=== PATIENT | female | born 1980 | race Caucasian/White ===

== ENCOUNTER 2021-10-06 18:29 | Outpatient (REF) | payer MEDICAID, SELFPAY ==
[2021-10-06 18:55] LABS: TSH (W/Ref FT4) 1.92 uIU/mL (0.36-3.74)
== END 2021-10-06 18:30 | disposition home or self-care (01) ==
LOC: NCHCN 18:29
PROVIDERS: Visit Provider Nurse Practitioner Family
DX: R00.2 Palpitations (principal)
CPT/HCPCS: 84443

== ENCOUNTER 2022-03-10 07:59 | Outpatient (CLI) | payer MEDICAID, SELFPAY ==
--- NOTE | 2022-03-10 07:45 | RT.EKG_ITS ---
APPROVED REPORT Exam: Resting ECG Reason for Exam: palpitations Patient Location: O HR:74 bpm ECG Measurements Heart Rate 74 AXIS MI 163 P 37 QRSd 86 QRS 22 QT 382 T 36 QTc 424 Conclusion Sinus rhythm...normal P axis, V-rate 50- 99 Low voltage, precordial leads...precordial leads <1.0mV Otherwise normal
== END 2022-03-10 08:00 | disposition home or self-care (01) ==
LOC: DI.CARD 08:00
PROVIDERS: PCP Nurse Practitioner Family; Visit Provider Internal Medicine Cardiovascular Disease
DX: R00.2 Palpitations (principal)
CPT/HCPCS: 93010

== ENCOUNTER 2022-04-04 10:32 | Outpatient (REF) | payer MEDICAID, SELFPAY ==
[2022-04-04 15:53] LABS: ALT 17 U/L (14-59); AST 20 U/L (15-37); Albumin 4.2 g/dL (3.4-5.0); Alkaline Phosphatase 45 U/L (46-116); Anion Gap 5.1 mmol/L (3-11); BUN 12 mg/dL (7-18); Bilirubin, Total 0.6 mg/dL (0.2-1.0); CO2 29.9 mmol/L (21.0-32.0); Calcium 8.9 mg/dL (8.5-10.1); Calculated LDL 76 mg/dL (<100); Chloride 101 mmol/L (98-107); Cholesterol 164 mg/dL (<200); Glucose 96 mg/dL (74-106); HDL Cholesterol 73 mg/dL (40-60); Sodium 136 mmol/L (136-145); Total Protein 7.8 g/dL (6.4-8.2); Triglyceride 76 mg/dL (<150)
== END 2022-04-04 10:33 | disposition home or self-care (01) ==
LOC: NCHCN 10:32
PROVIDERS: PCP Nurse Practitioner Family; Visit Provider Nurse Practitioner Family
DX: R00.2 Palpitations (principal); Z13.220 Encounter for screening for lipoid disorders; R07.89 Other chest pain
CPT/HCPCS: 80053; 80061

== ENCOUNTER → 2022-04-04 11:03 | Outpatient (CLI) | payer MEDICAID, SELFPAY ==
--- NOTE | 2022-04-04 | DI.US_ITS ---
Exam(s) US LOWER EXTREMITY VENOUS RT EXAM: US LOWER EXTREMITY VENOUS RT CLINICAL HISTORY: PHLEBITIS AND THROMBOPHLEBITIS OF OTHER SITE, I80.8 TECHNIQUE: Grayscale, color, and doppler imaging of the deep venous system of the right lower extrem ity was performed. COMPARISON: No exams were available for comparison FINDINGS: There is no evidence of intraluminal thrombus and there is normal compression and augmentation demons trated within the common femoral vein, femoral vein, and popliteal vein. In the ipsilateral calf the interrogated veins also exhibit normal compression/ augmentation properti es. The ipsilateral saphenofemoral junction is patent. There are dilated varicose veins in the area of bruising medial aspect of the knee area but veins wer e compressible with no evidence of intraluminal thrombus therein. In addition, there is no abnormal subcutaneous fluid collection. IMPRESSION: 1. No evidence of DVT in the right lower extremity. 2. Medially located varicose veins which do not exhibit thrombophlebitis. DATA REPOSITORY:
== END ==
PROVIDERS: PCP Nurse Practitioner Family; Visit Provider Nurse Practitioner Family
DX: I83.91 Asymptomatic varicose veins of right lower extremity (principal)
CPT/HCPCS: 93971

== ENCOUNTER 2023-02-08 10:12 | Outpatient (CLI) | payer MEDICAID, SELFPAY ==
--- NOTE | 2023-02-08 10:11 | DI.RAD_ITS ---
Exam(s) XR KNEE RT 3V AP,LAT,CANDACE EXAM: XR KNEE RT 3V AP,LAT,CANDACE CLINICAL HISTORY: ACUTE RT KNEE PAIN M25.561. TECHNIQUE: 2D digital imaging was performed. COMPARISON: No exams were available for comparison FINDINGS: 3 views No evidence of acute fracture nor obvious joint effusion. No joint space narrowing. No osteophytes. No lytic osseous lesions. Bone density appears normal. IMPRESSION: No significant osseous findings in the knee. DATA REPOSITORY: RADIATION DOSE DELIVERED:
== END 2023-02-08 10:32 ==
LOC: DI 10:18
PROVIDERS: PCP Nurse Practitioner Family; Visit Provider Nurse Practitioner Family
DX: M25.561 Pain in right knee (principal)
CPT/HCPCS: 73562

== ENCOUNTER 2023-10-16 11:10 | Outpatient (CLI) | payer MEDICAID, SELFPAY | END 2023-10-16 11:11 | disposition home or self-care (01) | PROVIDERS: PCP Nurse Practitioner Family; Visit Provider Nurse Practitioner Family | DX: R00.2 Palpitations (principal) | CPT/HCPCS: 93246 ==

== ENCOUNTER 2023-10-22 14:57 | Outpatient (REF) | payer MEDICAID, SELFPAY ==
[2023-10-22 16:02] LABS: Abs Immature Grans 0.01 10^3/uL (0.0-0.06); Absolute Basophil Count 0.04 10^3/uL (0.0-0.2); Absolute Eosinophil Count 0.06 10^3/uL (0.0-0.7); Absolute Lymphocyte Count 2.26 10^3/uL (1.2-3.4); Absolute Monocyte Count 0.46 10^3/uL (0.1-0.8); Absolute Neutrophil Count 2.35 10^3/uL (1.2-6.7); Basophils % 0.8; Eosinophils % 1.2; HCT 42.2 % (36.0-46.0); HGB 13.8 g/dL (11.2-15.7); Immature Grans % 0.2; Lymphocytes % 43.6; MCH 30.6 pg (27.0-33.0); MCHC 32.7 % (32.0-36.0); MCV 94 fL (80-95); MPV 11.8 fL (8.0-11.0); Monocytes % 8.9; Neutrophils % 45.3; Platelet Count 184 10^3/uL (130-400); RBC 4.51 10^6/uL (3.93-5.22); RDW 11.9 % (11.7-14.6); RDW-SD 41.1 fL; WBC 5.18 10^3/uL (4.4-10.8)
[2023-10-22 16:25] LABS: ALT 17 U/L (14-59); AST 16 U/L (15-37); Albumin 4.3 g/dL (3.4-5.0); Alkaline Phosphatase 36 U/L (46-116); Anion Gap 11.4 mmol/L (3-11); BUN 12 mg/dL (7-18); Bilirubin, Total 0.6 mg/dL (0.2-1.0); CO2 23.6 mmol/L (21.0-32.0); CREATININE 0.9 mg/dL (0.55-1.02); Calcium 9.1 mg/dL (8.5-10.1); Calculated LDL 54 mg/dL (<100); Chloride 103 mmol/L (98-107); Cholesterol 132 mg/dL (<200); Estimated GFR 82.37 (mL/min/1.73m2); Glucose 102 mg/dL (74-106); HDL Cholesterol 67 mg/dL (40-60); Potassium 3.8 mmol/L (3.5-5.1); Sodium 138 mmol/L (136-145); TSH 4.34 uIU/mL (0.36-3.74); Total Protein 7.5 g/dL (6.4-8.2); Triglyceride 56 mg/dL (<150)
[2023-10-22 17:24] LABS: FREE T4 0.98 ng/dL (0.76-1.46)
[2023-10-23 15:17] LABS: ANA Interpretation Negative (Negative)
== END 2023-10-22 14:58 | disposition home or self-care (01) ==
LOC: NCHCN 14:57
PROVIDERS: PCP Nurse Practitioner Family; Visit Provider Nurse Practitioner Family
DX: L65.9 Nonscarring hair loss, unspecified (principal); R00.2 Palpitations; N94.89 Other specified conditions associated with female genital organs and menstrual cycle; Z13.220 Encounter for screening for lipoid disorders
CPT/HCPCS: 80053; 80061; 86141; 84439; 84443; 85025; 86038

== ENCOUNTER → 2023-11-02 01:03 | Outpatient (CLI) | payer MEDICAID, SELFPAY ==
--- NOTE | 2023-11-02 08:30 | DI.MAMMO_ITS ---
Exam(s) MAMMO SCREENING EXAM: MAMMO SCREENING CLINICAL HISTORY: SCREENING, Z12.39 TECHNIQUE: Bilateral full field digital CC and MLO mammographic images were obtained with 3D tomosyn thesis and utilizing computer aided detection (CAD). COMPARISON: This is a baseline examination. FINDINGS: Masses/Architectural Distortion: None seen. Microcalcifications: No suspicious pleomorphic-type are seen. Skin Thickening/Nipple Retraction: None. IMPRESSION: 1. No significant interval change with no specific features of malignancy noted. 2. Unless there is more urgent need, screening mammography is recommended, as per [employer] [place] [employer] guidelines. BI-RADS Category 1 - Negative Breast Density - Category B - Scattered areas of fibroglandular density Breast density category C or D implies that the patient has dense breast tissue. Dense breast tissue is very common and is not abnormal but dense breast tissue can make it harder to find cancer on a ma mmogram. Also, dense breast tissue may increase their breast cancer risk. This information about the result of the mammogram report was provided to the patient to raise their awareness. Use this report when you speak with the patient about their risks for breast cancer, which includes their family hist ory. At that time, you may recommend for more screening tests (Ultrasound or MRI) as they might be us eful based on their risk. A negative radiographic report should not delay biopsy if a dominant or clinically suspicious mass is present. Up to ten percent of cancers are not identified on mammography. A negative report may reinforce clinical impression. Adenosis and dense breasts may obscure an underlying neoplasm. False positive reports average 6 to 10%. Patient will receive a letter notifying them of these results.
== END ==
PROVIDERS: PCP Nurse Practitioner Family; Visit Provider Nurse Practitioner Family
DX: Z12.31 Encounter for screening mammogram for malignant neoplasm of breast (principal); R92.323 Mammographic fibroglandular density, bilateral breasts
CPT/HCPCS: 77063; 77067

== ENCOUNTER 2023-11-12 07:56 | Outpatient (CLI) | payer MEDICAID, SELFPAY ==
--- NOTE | 2023-11-12 10:00 | W.CARDEVENT ---
Date of service: 11/12/23 Time of Service: 10:00 Cardiac Event Recorder Referring Provider:: Indu Celeste Indications:: palpitations Cardiac Event Note: This is a cardiac event monitor ordered for palpitations Patient was monitored for 13 days 1 hour Rhythm throughout was sinus. Minimum heart rate was 50, maximum was 161. Average heart rate was 77 There were rare ventricular ectopic beats There were very rare atrial premature beats There was no atrial fibrillation, no high-grade AV block, no pauses greater than 3 seconds Patient symptoms were reported which correlated with premature ventricular contractions
== END 2023-11-12 07:57 | disposition home or self-care (01) ==
LOC: CARDOPNVT 07:56
PROVIDERS: PCP Nurse Practitioner Family; Visit Provider Internal Medicine Cardiovascular Disease
DX: R00.2 Palpitations (principal)

== ENCOUNTER 2024-11-03 00:38 | Outpatient (CLI) | payer MEDICAID, SELFPAY ==
--- NOTE | 2024-11-03 | DI.MAMMO_ITS ---
Exam(s) MAMMO SCREENING EXAM: MAMMO SCREENING CLINICAL HISTORY: Screening, Z12.31 TECHNIQUE: Mammograms were interpreted according to the usual protocol including computer analysis w [employer] CAD system, tomosynthesis and C-view imaging. COMPARISON: 2023 FINDINGS: The breasts are composed of scattered fibroglandular densities, Breast Density category B. No suspicious masses or suspicious microcalcifications are seen. No skin thickening or abnormal axillary lymph nodes are seen. There has been no significant change from prior exams. IMPRESSION: BI-RADS Category 1, Negative mammogram Yearly screening mammography is recommended. Breast Density - Category B, scattered fibroglandular densities. A negative radiographic report should not delay biopsy if a dominant or clinically suspicious mass is present. Up to ten percent of cancers are not identified on mammography. A negative report may reinforce clinical impression. Adenosis and dense breasts may obscure an underlying neoplasm. False positive reports average 6 to 10%. Patient will receive a letter notifying them of these results.
== END 2024-11-03 00:58 ==
PROVIDERS: PCP Nurse Practitioner Family; Visit Provider Nurse Practitioner Family
DX: Z13.1 Encounter for screening for diabetes mellitus (principal); R92.323 Mammographic fibroglandular density, bilateral breasts
CPT/HCPCS: 77063; 77067

== ENCOUNTER 2025-08-07 14:30 | Outpatient (REF) | payer MEDICAID, SELFPAY ==
--- NOTE | 2025-08-07 13:00 | PAPFT_PTH ---
PATIENT: Karyn Urbano LOC: [facility]#:[id number] AGE/SX: 45/F ROOM: RE08/07/[address]: Patricia Frias : 1980 BED: DIS: 08/07/2025 SPEC #: [id number] RECD: 08/10/25 12:32 STATUS: BAUDILIO UP #: [id number] LEEANNE: 08/07/25 13:[address]: Patricia Frias DEPT: [facility] Cyt[facility] RECD BY: Maribel Silva ENTERED: 08/10/25 12:32 SP TYPE: PAPFT OTHR DR: Indu Celeste Tissues: 1 - CX/ENDOCX FOR PAP SMEARS Procedures: PAP THIN PREP/[facility] Screening HPV DNA PROBE Comments: [id number] (HPV 16 & 18/45)
[2025-08-07 21:02] LABS: HCT 43.8 % (36.0-46.0); HGB 14.2 g/dL (11.2-15.7); MCH 31.3 pg (27.0-33.0); MCHC 32.4 % (32.0-36.0); MCV 97 fL (80-95); MPV 11.7 fL (8.0-11.0); Platelet Count 189 10^3/uL (130-400); RBC 4.54 10^6/uL (3.93-5.22); RDW 12.7 % (11.7-14.6); RDW-SD 45.9 fL; WBC 8.42 10^3/uL (4.4-10.8)
[2025-08-07 21:25] LABS: TSH (W/Ref FT4) 2.63 uIU/mL (0.36-3.74)
== END 2025-08-07 14:31 | disposition home or self-care (01) ==
LOC: NCHCN 14:30
PROVIDERS: PCP Nurse Practitioner Family; Visit Provider Internal Medicine
DX: Z87.42 Personal history of other diseases of the female genital tract (principal); E03.8 Other specified hypothyroidism; Z12.4 Encounter for screening for malignant neoplasm of cervix
CPT/HCPCS: 85027; 88142; 84443; 87624